=== PATIENT | female | born 1955 | race African-American/Black ===

== ENCOUNTER 2019-05-06 12:55 | Emergency (ER) | payer BC ==
[2019-05-06 13:45] VITALS: BP 145/59
--- NOTE | 2019-05-06 13:47 | UC ---
UC General HPI - HPI Summary HPI Summary: RN notes - Dry cough started yesterday, itching in throat, sore throat when coughing; headache. 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 Pt' s 1st language is Romanian Pleasant 63 yo female C/o fever / cough / st + h/a No GI issues. + fatigue. No rash. 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 Reports that no heat in office x 2 days - History of Current Complaint Chief Complaint: UCRespiratory Stated Complaint: COUGH, CHEST CONGESTION Time Seen by Provider: 05/06/19 13:45 Hx Obtained From: Patient Hx Last Menstrual Period: Age 47 Pain Intensity: 4 - Allergy/Home Medications Allergies/Adverse Reactions: Allergies Allergy/AdvReac Type Severity Reaction Status Date / Time diphenhydramine Allergy syncope Verified 05/06/19 13:47 [From Benadryl] Home Medications: Home Medications Citalopram TAB* [CeleXA TAB*] 10 mg PO DAILY 05/06/19 [History Confirmed ] hydrOXYzine HCL TAB* [Atarax TAB 50 MG *] 50 mg PO BEDTIME 05/06/19 [History Confirmed 05/06/19] PMH/Surg Hx/FS Hx/Imm Hx Previously Healthy: Yes - Surgical History Surgical History: None - Family History Known Family History: Positive: Non-Contributory - Social History Alcohol Use: None Substance Use Type: None Smoking Status (MU): Never Smoked Tobacco Review of Systems All Other Systems Reviewed And Are Negative: Yes Constitutional: Positive: Fever, Fatigue Skin: Positive: Negative Eyes: Positive: Negative ENT: Positive: Sore Throat, Nasal Discharge, Sinus Congestion Respiratory: Positive: Cough Cardiovascular: Positive: Negative Gastrointestinal: Positive: Negative Genitourinary: Positive: Negative Motor: Positive: Negative Neurovascular: Positive: Negative Musculoskeletal: Positive: Negative Neurological: Positive: Headache Psychological: Positive: Negative Is Patient Immunocompromised?: No Physical Exam Triage Information Reviewed: Yes Appearance: Well-Nourished - sitting up, conversing ok. looks tired, but nontoxic / nad. Vital Signs: Initial Vital Signs Temp 99.1 F 05/06/19 13:33 Pulse 66 05/06/19 13:33 Resp 20 05/06/19 13:33 BP 145/59 05/06/19 13:33 Pulse Ox 100 05/06/19 13:33 Vital Signs Reviewed: Yes Eye Exam: Normal ENT: Positive: Pharyngeal erythema - no sores / uvula midline, Nasal congestion , Nasal drainage, TM dull, Other - R cerumen impaction Neck exam: Normal Neck: Positive: Supple, Nontender, No Lymphadenopathy Respiratory Exam: Other - + cough rhonchorus Respiratory: Positive: Chest non-tender, Lungs clear, Normal breath sounds, No respiratory distress, No accessory muscle use Cardiovascular Exam: Normal Cardiovascular: Positive: Pulses Normal, Brisk Capillary Refill Abdominal Exam: Normal Abdomen Description: Positive: Nontender Musculoskeletal Exam: Normal Neurological Exam: Normal - nonfocal Psychological Exam: Normal - nad Skin Exam: Normal - nondiaphoretic no visible or reported rash Course/Dx - Course Course Of Treatment: Influenza A + Reviewed coa / tx plan. Questions as posed answered to the best of my ability. - Diagnoses Provider Diagnosis: Influenza A Discharge ED - Sign-Out/Discharge Documenting (check all that apply): Patient Departure All imaging exams completed and their final reports reviewed: No Studies - Discharge Plan Condition: Stable Disposition: HOME Patient Education Materials: Influenza (ED) Forms: *Work Release Referrals: Joycelyn Cabral [Primary Care Provider] - - Billing Disposition and Condition Condition: STABLE Disposition: Home
[2019-05-06 14:13] LABS: Influenza A Molecular POSITIVE (Negative)
== END 2019-05-06 14:50 | disposition home or self-care (01) ==
LOC: UCCORT 12:55
DX: J10.1 Influenza due to other identified influenza virus with other respiratory manifestations (principal); Z88.8 Allergy status to other drugs, medicaments and biological substances
CPT/HCPCS: 99212; G0463